=== PATIENT | male | born 2005 | race Caucasian/White ===

== ENCOUNTER 2023-04-09 00:05 | Emergency (ER) | payer BC ==
[~2023-04-09] VITALS: Ht 182.9 cm; Wt 54.4 kg
[2023-04-09 00:05] VITALS: BP 132/99; PULSE 112; RESP 18; TEMP 97.9
[2023-04-09 02:35] VITALS: O2SAT 99
[2023-04-09 04:02] VITALS: BP 113/72; PULSE 68; RESP 17; TEMP 97.9; O2SAT 98
== END 2023-04-09 04:51 | disposition home or self-care (01) ==
LOC: MED 00:05
DX: F10.129 Alcohol abuse with intoxication, unspecified (principal); R41.82 Altered mental status, unspecified; R11.2 Nausea with vomiting, unspecified
CPT/HCPCS: 99283